=== PATIENT | female | born 1970 | race Caucasian/White ===

== ENCOUNTER 2024-08-15 20:36 | Emergency (ER) | payer OTHER ==
[~2024-08-15] VITALS: Ht 162.6 cm; Wt 64.0 kg
[2024-08-15 21:03] VITALS: O2SAT 100
[2024-08-15 22:09] VITALS: TEMP 36.89184
[2024-08-15] MEDS ORDERED: HYDROMORPHONE HCL/PF 2MG/ML INJ IV ONE (23:00)
[2024-08-15 23:08] LABS: BASOPHILS % 0.3 % (0.0-2.0); DIFFERENTIAL COMMENT 0; EOSINOPHILS % 0.8 % (0.0-5.0); HEMATOCRIT. 40.5 % (36.0-48.0); HEMOGLOBIN. 13.7 g/dL (12.0-16.0); LYMPHOCYTES % 11.6 % (20.0-50.0); MEAN CORPUSCULAR HEMOGLOBIN 34.2 pg (28.0-32.0); MEAN CORPUSCULAR VOLUME 100.9 fL (81.0-99.0); MEAN PLATELET VOLUME 9.1 fl (7.4-10.4); MONOCYTES % 8.3 % (2.0-8.0); PLATELET 281 x1000/uL (130-400); RED BLOOD CELL COUNT 4.01 mill/uL (4.2-5.4); RED CELL DISTRIBUTION WIDTH 12.8 % (11.6-14.6); WHITE BLOOD COUNT 12.6 x1000/uL (4.5-11.0)
[2024-08-15 23:10] LABS: CHLORIDE 107 mEq/L (98-107); POTASSIUM 3.2 mEq/L (3.5-5.1); SODIUM 143 mEq/L (136-145)
[2024-08-15 23:11] LABS: CALCIUM 9.9 mg/dL (8.7-10.4); CARBON DIOXIDE 27 mEq/L (21-32)
[2024-08-15 23:16] LABS: GLUCOSE 107 mg/dL (70-105); UREA NITROGEN BLOOD 6 mg/dL (9-23)
[2024-08-15] MEDS: HYDROMORPHONE HCL/PF 1MG/ML INJ IV NR (23:16)
[2024-08-15 23:18] LABS: ALANINE AMINOTRANSFERASE 8 IU/L (10-49); ALBUMIN 4.6 g/dL (3.2-4.8); ASPARTATE AMINOTRANSFERASE 13 IU/L (<34); BILIRUBIN DIRECT 0.1 mg/dL (<=3.0); TROPONIN I HIGH SENSITIVITY < 4 ng/L (3.0-34)
[2024-08-15 23:19] LABS: BILIRUBIN TOTAL 0.4 mg/dL (0.1-1.0); PROTEIN TOTAL 6.7 g/dL (6.0-8.3)
[2024-08-15 23:25] LABS: HCG SCREEN NEGATIVE
[2024-08-15] MEDS: LACTATED RINGERS 1,000 ML IV SCH (23:30)
[2024-08-15 23:43] LABS: CLARITY URINE CLOUDY (CLEAR); COLOR URINE DARK YELLOW (YELLOW); GLUCOSE URINE NEGATIVE (NEGATIVE); KETONES URINE TRACE (NEGATIVE); LEUKOCYTE ESTERASE URINE 2+ (NEGATIVE); NITRITE URINE POSITIVE (NEGATIVE); OCCULT BLOOD URINE 3+ (NEGATIVE); PH URINE 7.5 (4.5-8.0); PROTEIN URINE 2+ (NEGATIVE); SPECIFIC GRAVITY URINE 1.008 (1.005-1.030)
[2024-08-16] MEDS ORDERED: LACTATED RINGERS 1,000 ML IV SCH
[2024-08-16 00:24] LABS: WBC URINE 50-100 /hpf (0-2)
[2024-08-16 00:25] LABS: RBC URINE 50-100 /hpf (0-2)
[2024-08-16 00:26] LABS: BACTERIA URINE TRACE; SQUAMOUS EPITHELIAL CELL URINE 1+ /lpf (RARE/1+)
[2024-08-16] MEDS: CEFTRIAXONE 1GM/50ML 50 ML IV ONE (01:01)
[2024-08-16 01:59] VITALS: BP 155/86; O2SAT 97
[2024-08-16 02:30] VITALS: PULSE 92; RESP 18
[2024-08-16] MEDS ORDERED: IOHEXOL-350 100 ML BOTTLE ONE (07:04)
== END 2024-08-16 02:37 | disposition home or self-care (01) ==
LOC: ER 20:36
DX: N12 Tubulo-interstitial nephritis, not specified as acute or chronic (principal); R07.89 Other chest pain; I10 Essential (primary) hypertension; R19.7 Diarrhea, unspecified; R31.9 Hematuria, unspecified; Z87.442 Personal history of urinary calculi; Z88.6 Allergy status to analgesic agent; Z88.5 Allergy status to narcotic agent
CPT/HCPCS: 99285; 96361; 96375; 80076; 80048; 81003; 84703; 83690; 85025; 84484; 36415; 71275; 96365; 83605; 87040; 87086; 74177; J1171; Q9967; J0696